=== PATIENT | male | born 1945 | race African-American/Black ===

== ENCOUNTER 2018-02-16 13:07 | Emergency (ER) | payer OTHER ==
[~2018-02-16] VITALS: Ht 188 cm; Wt 81.7 kg
[~2018-02-16 13:07] MED LIST: CLOPIDOGREL; LISINOPRIL PO; LOVASTATIN PO; ZOCOR40 MG PO
[2018-02-16] MEDS ORDERED: BLOOD PRESSURE (13:15)
[2018-02-16 14:17] LABS: URINE BILIRUBIN NEGATIVE (Negative); URINE BLOOD NEGATIVE (Negative); URINE CLARITY CLEAR; URINE COLOR YELLOW; URINE GLUCOSE-RANDOM NEGATIVE (Negative); URINE KETONES TRACE (Negative); URINE LEUKOCYTES-REFLEX TRACE (Negative); URINE NITRITE-REFLEX NEGATIVE (Negative); URINE PROTEIN 2+ (Negative); URINE SPECIFIC GRAVITY >= 1.030 (1.005-1.030)
[2018-02-16 14:23] LABS: HEMATOCRIT 44.6 % (42.0-52.0); HEMOGLOBIN 14.7 gm/dL (14.0-18.0); MCH 30.9 pg (26.0-34.0); MCHC 33.1 g/dL (28.0-37.0); MCV 93.5 fL (80.0-100.0); MPV 8.3 fl. (7.2-11.1); NUCLEATED RBCS 0 /100WBC; PLATELET COUNT* 256 thou/uL (150-400); RBC 4.77 mil/uL (4.50-6.00); RDW-CV 13.1 % (10.5-14.5); WBC 15.3 thou/uL (4.0-11.0)
[2018-02-16 14:25] LABS: BACTERIA-REFLEX None Seen /HPF (None Seen); CRYSTALS None Seen /LPF (None Seen); HYALINE CASTS 0-3 Few /LPF (None Seen); MUCUS 0-3 Light strn/LPF (None Seen); SQUAMOUS 0-3 Few /LPF (0-3); URINE RBC None Seen /HPF (0-2); URINE WBC-REFLEX 0-5 Rare /HPF (0-5)
[2018-02-16 14:40] LABS: ANION GAP 7 mmol/L (7-16); BUN 14 mg/dL (7-18); CALCIUM 9.5 mg/dL (8.5-10.1); CHLORIDE 104 mmol/L (98-107); CO2 26 mmol/L (21-32); CREATININE 1.1 mg/dL (0.6-1.3); GLUCOSE 112 mg/dL (70-99); POTASSIUM 4.1 mmol/L (3.5-5.1); SODIUM 137 mmol/L (136-145)
[2018-02-16 14:49] LABS: ABSOLUTE LYMPHOCYTES 1.2 thou/uL (0.8-5.3); ABSOLUTE MONOCYTES 0.2 thou/uL (0.0-1.2); ABSOLUTE NEUTROPHILS 13.9 thou/uL (1.6-8.1); PLATELET ESTIMATE ADEQUATE
[2018-02-16 14:50] LABS: ALKALINE PHOSPHATASE 87 U/L (46-116); SGOT 31 U/L (15-37); SGPT 35 U/L (30-65); TOTAL BILIRUBIN 0.5 mg/dL (<0.1-1.0); TOTAL PROTEIN 8.1 g/dL (6.4-8.2); TROPONIN-I LEVEL <0.06 ng/mL (<0.06)
[2018-02-16 15:42] VITALS: BP 149/77
--- NOTE | 2018-02-18 16:50 | EKG ---
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: : 1945 Requested By: Kaylene Hodges Order Number: [id number] MD: Ankit Dobbs Measurements Intervals [place] Rate: 61 P: 25 [place]: 176 QRS: 19 QRSD: 105 T: 10 QT: 427 QTc: 430 Interpretive Statements Sinus rhythm Probable left atrial enlargement Left ventricular hypertrophy Compared to ECG 10/21/2012 10:54:46 No significant changes Electronically Signed On 02-18-2018 16:49:45 CDT by Ankit Dobbs [email or web address] <ELECTRONICALLY SIGNED> By: Ankit Dobbs MD, [facility] 02/18/18 1649 1312 1312 Ankit Dobbs MD, FACC /EPI
== END 2018-02-16 15:43 | disposition home or self-care (01) ==
LOC: M.ERS 13:07
PROVIDERS: Personal Emergency Response Attendant
DX: R42 Dizziness and giddiness (principal); R55 Syncope and collapse; Z90.49 Acquired absence of other specified parts of digestive tract

== ENCOUNTER 2018-05-23 17:15 | Emergency (ER) | payer OTHER ==
[~2018-05-23] VITALS: Ht 185.4 cm; Wt 81.7 kg
[~2018-05-23 17:15] MED LIST changes: +BLOOD PRESSURE
[2018-05-23] MEDS ORDERED: NORVASC2.5 MG PO (17:31)
[2018-05-23] MEDS ORDERED: NORCO 5-325 TA1 EAC1 PO (19:30)
[2018-05-23 19:50] VITALS: BP 180/89
== END 2018-05-23 19:50 | disposition home or self-care (01) ==
LOC: M.ERS 17:15
DX: S30.0XXA Contusion of lower back and pelvis, initial encounter (principal); I10 Essential (primary) hypertension; Z98.890 Other specified postprocedural states; Z90.49 Acquired absence of other specified parts of digestive tract; W18.39XA Other fall on same level, initial encounter; Y93.89 Activity, other specified; Y92.89 Other specified places as the place of occurrence of the external cause; Y99.8 Other external cause status

== ENCOUNTER 2018-11-29 21:09 | Emergency (ER) | payer OTHER ==
[~2018-11-29] VITALS: Ht 185.4 cm; Wt 79.8 kg
[~2018-11-29 21:09] MED LIST changes: +NORCO 5-325 TA1 EAC1 PO; +NORVASC2.5 MG PO
[2018-11-30] MEDS ORDERED: NORCO 7.5-3251 EACH PO (00:08)
[2018-11-30 00:58] VITALS: BP 167/87
== END 2018-11-30 00:59 | disposition home or self-care (01) ==
LOC: M.ERS 21:09
DX: S80.02XA Contusion of left knee, initial encounter (principal); S79.911A Unspecified injury of right hip, initial encounter; S19.9XXA Unspecified injury of neck, initial encounter; I10 Essential (primary) hypertension; Z90.89 Acquired absence of other organs; Z90.49 Acquired absence of other specified parts of digestive tract; Z79.899 Other long term (current) drug therapy; W01.0XXA Fall on same level from slipping, tripping and stumbling without subsequent striking against object, initial encounter; Y93.89 Activity, other specified; Y92.89 Other specified places as the place of occurrence of the external cause; Y99.8 Other external cause status

== ENCOUNTER → 2019-08-18 | Outpatient (CLI) | payer OTHER ==
[~2019-08-18] MED LIST changes: +NORCO 7.5-3251 EACH PO
== END ==
LOC: M.LAB 14:51
DX: C61 Malignant neoplasm of prostate (principal)

== ENCOUNTER 2020-01-26 08:19 | Emergency (ER) | payer OTHER ==
[~2020-01-26] VITALS: Ht 185.4 cm; Wt 79.4 kg
[2020-01-26 09:25] VITALS: BP 178/88
== END 2020-01-26 09:27 | disposition home or self-care (01) ==
LOC: M.ERS 08:19
DX: Z71.1 Person with feared health complaint in whom no diagnosis is made (principal); Z20.828 Contact with and (suspected) exposure to other viral communicable diseases; I10 Essential (primary) hypertension; Z79.899 Other long term (current) drug therapy

== ENCOUNTER 2020-06-02 09:40 | Emergency (ER) | payer OTHER, BC ==
[~2020-06-02] VITALS: Ht 185.4 cm; Wt 79.4 kg
[2020-06-02] MEDS ORDERED: IBUPROFEN 800800 MG PO (10:47)
[2020-06-02 10:50] VITALS: BP 177/80
== END 2020-06-02 10:53 | disposition home or self-care (01) ==
LOC: M.ERS 09:40
DX: S40.012A Contusion of left shoulder, initial encounter (principal); S80.02XA Contusion of left knee, initial encounter; V89.2XXA Person injured in unspecified motor-vehicle accident, traffic, initial encounter; Y93.89 Activity, other specified; Y92.89 Other specified places as the place of occurrence of the external cause; Y99.8 Other external cause status

== ENCOUNTER → 2020-07-26 | Outpatient (CLI) | payer BC ==
[~2020-07-26] MED LIST changes: +COZAAR 25 MG TA25 M1 PO; +IBUPROFEN 800800 MG PO; +MOBIC15 MG PO; +NEURONTIN100 MG PO; +NORVASC 2.5 MG2.5 M1 PO; -NORVASC2.5 MG PO; +PROSCAR 5MG TABL5 M1 PO; +TRAMADOL 50 MG50 MG PO
== END ==
LOC: M.PC 11:46
PROVIDERS: ATTEND Anesthesiology Pain Medicine
DX: M54.2 Cervicalgia (principal); M25.512 Pain in left shoulder; M25.511 Pain in right shoulder; I12.9 Hypertensive chronic kidney disease with stage 1 through stage 4 chronic kidney disease, or unspecified chronic kidney disease; N18.30 Chronic kidney disease, stage 3 unspecified; E78.5 Hyperlipidemia, unspecified; R51.9 Headache, unspecified; M17.12 Unilateral primary osteoarthritis, left knee; Z79.899 Other long term (current) drug therapy

== ENCOUNTER → 2020-09-06 | Outpatient (CLI) | payer BC ==
[~2020-09-06] MED LIST changes: +.
== END | disposition home or self-care (01) ==
LOC: M.PC 08:41
PROVIDERS: ATTEND Anesthesiology Pain Medicine
DX: M54.12 Radiculopathy, cervical region (principal); I12.9 Hypertensive chronic kidney disease with stage 1 through stage 4 chronic kidney disease, or unspecified chronic kidney disease; N18.30 Chronic kidney disease, stage 3 unspecified; E78.5 Hyperlipidemia, unspecified; M17.12 Unilateral primary osteoarthritis, left knee; Z98.890 Other specified postprocedural states; Z79.899 Other long term (current) drug therapy; Z96.651 Presence of right artificial knee joint

== ENCOUNTER 2020-12-18 13:03 | Emergency (ER) | payer BC ==
[2020-12-18 14:24] VITALS: BP 00/00
== END 2020-12-18 14:25 | disposition left against medical advice (07) ==
LOC: M.ERS 13:03
DX: R55 Syncope and collapse (principal); Z53.21 Procedure and treatment not carried out due to patient leaving prior to being seen by health care provider

== ENCOUNTER 2021-02-19 13:42 | Observation (INO) | payer BC ==
[~2021-02-19] VITALS: Ht 182.9 cm; Wt 82.2 kg
--- NOTE | ~2021-02-19 | EMS ---
[place] [address] EMS Patient Care Report Name: STONEY TRAVIS Room: [facility].Clif#: [id number] Admission: 02/19/21 Attend Phys: Discharge: Date of : 41 Report #: [id number] THIS REPORT FOR: //name// Report Transmitted: 02/19/2021 13:31 EMS Care Summary [place] Incident [id number] @ 02/19/2021 12:42 Incident Location [address] [place] [id number] Patient Stoney Travis Male, 75 Years 1945 Patient Address [address] [place] [address] Patient History Hypertension (HTN),Hyperlipidemia, Patient Allergies No known allergies, Patient Medications Amlodipine, Simvastatin, Losartan, Chief Complaint Dizziness Disposition Transported No Lights/[place] Dispatch Reason Unconscious/Fainting Transported To [facility] Narrative Dispatched to address noted for a syncopal episode. [facility] en route and on scene after staging as noted. Arrived and found patient in a small adventist building. Patient was sitting in a chair, drinking Poweraid and was alert. Patient appeared clammy and had cold hands. 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 Patient had no fall or injuries noted. Bystanders on scene where very loud and interruptive to my assessment and questions so I moved the patient to the ambulance and he was buckled into the stretcher. Patient wanted to walk and I assisted him. Once in ambulance, patient stated that this same event happened 5 weeks ago and he was given fluid at the ER and releases. Patient stated he started to feel hot and dizzy before the event and denies any other complaint at this time other than dizziness. Vitals where taken at time noted with 12 lead ECG and blood glucose. Patient did not want to be transported initially, but after some conversations with his the patient agreed to go to [facility]. IV was attempted with no success and the patient stated he wanted to wait until he go the ED. While en route, vitals where taken again as noted and no major changes occurred. Patient stated no current complaint. Radio report was given at time noted. Arrived and took patient to room. Patient was moved to bed and RN was given verbal report. RN signed for patient and patient signed for self. END REPORT EMT-P Omer Cartagena Initial Vitals @12:57SpO2: 94, @12:58SpO2: 94, @12:58SpO2: 99, @13:01SpO2: 99, @13:02SpO2: 98, @13:06SpO2: 99, @13:11SpO2: 99, @13:00 @12:58P: 81,R: 16,BP: 127/71, @13:02P: 74,R: 16,BP: 119/73, @13:33P: 64,R: 16,BP: 116/73, @12:58GCS: 15, @13:02GCS: 15, @13:33GCS: 15, @12:48 @12:54Glucose: 259, Assessments @12:48MENTAL:SKIN:HEENT:LUNG SOUNDS:ABDOMEN:PELVIS//GI:EXTREMITIES:PULSE:NEURO: Impression Syncope / Fainting Procedures @13:16 cc () Site: Forearm-LeftResponse: UnchangedFailed@13:0012-Lead ECGResponse: [place] [address] EMS Patient Care Report Name: STONEY TRAVIS [facility] [id number] Admission: 02/19/21 Attend Phys: Discharge: Date of : 41 Report #: [id number] Timeline 12:42,Dispatch Notified 12:42,Psap Call 12:42,Dispatched 12:42,En Route 12:46,On Scene 12:48,At Patient 12:48,BP: / M,PULSE: ,RR: R,SPO2: Ox,ETCO2: ,BG: ,PAIN: ,GCS: , 12:54,BP: / M,PULSE: ,RR: R,SPO2: Ox,ETCO2: ,B,PAIN: ,GCS: , 12:57,BP: / M,PULSE: ,RR: R,SPO2: 94 Ox,ETCO2: ,BG: ,PAIN: ,GCS: , 12:58,BP: / M,PULSE: ,RR: R,SPO2: 94 Ox,ETCO2: ,BG: ,PAIN: ,GCS: , 12:58,BP: / M,PULSE: ,RR: R,SPO2: 99 Ox,ETCO2: ,BG: ,PAIN: ,GCS: , 12:58,BP: 127/71 M,PULSE: 81,RR: 16 R,SPO2: Ox,ETCO2: ,BG: ,PAIN: ,GCS: , 12:58,BP: / M,PULSE: ,RR: R,SPO2: Ox,ETCO2: ,BG: ,PAIN: ,GCS: 15, 13:00,Call Received 13:00,12-Lead ECG,Response: UnchangedSucceeded, 13:00,BP: / M,PULSE: ,RR: R,SPO2: Ox,ETCO2: ,BG: ,PAIN: ,GCS: , 13:01,BP: / M,PULSE: ,RR: R,SPO2: 99 Ox,ETCO2: ,BG: ,PAIN: ,GCS: , 13:02,BP: / M,PULSE: ,RR: R,SPO2: 98 Ox,ETCO2: ,BG: ,PAIN: ,GCS: , 13:02,BP: 119/73 M,PULSE: 74,RR: 16 R,SPO2: Ox,ETCO2: ,BG: ,PAIN: ,GCS: , 13:02,BP: / M,PULSE: ,RR: R,SPO2: Ox,ETCO2: ,BG: ,PAIN: ,GCS: 15, 13:06,BP: / M,PULSE: ,RR: R,SPO2: 99 Ox,ETCO2: ,BG: ,PAIN: ,GCS: , 13:11,BP: / M,PULSE: ,RR: R,SPO2: 99 Ox,ETCO2: ,BG: ,PAIN: ,GCS: , 13:16, cc Site: Forearm-Left,Response: UnchangedFailed, 13:17,Depart Scene 13:33,BP: 116/73 M,PULSE: 64,RR: 16 R,SPO2: Ox,ETCO2: ,BG: ,PAIN: ,GCS: , 13:33,BP: / M,PULSE: ,RR: R,SPO2: Ox,ETCO2: ,BG: ,PAIN: ,GCS: 15, 13:40,At Destination 13:50,Call Closed Disclaimer v1.1 Copyright 2020 [employer] This EMS Care Summary contains data elements from the applicable legal record (which may be displayed differently). It is designed to provide pertinent information for the following purposes: continuity of care, clinical quality, and state data reporting. The complete legal record is available to ED staff and administrators of the receiving hospital in [employer] Patient Tracker. All data is provided "as is."
[2021-02-19 13:50] VITALS: BP 116/90
[2021-02-19 14:09] LABS: ABSOLUTE MONOCYTES 0.4 thou/uL (0.0-1.2); ABSOLUTE NEUTROPHILS 7.6 thou/uL (1.6-8.1); BASOPHILS 0.4 %; EOSINOPHILS 0.3 %; HEMATOCRIT 39.1 % (42.0-52.0); HEMOGLOBIN 12.8 gm/dL (14.0-18.0); LYMPHOCYTES 11.4 %; MCH 30.9 pg (26.0-34.0); MCHC 32.8 g/dL (28.0-37.0); MCV 94.1 fL (80.0-100.0); MONOCYTES 4.1 %; MPV 7.8 fl. (7.2-11.1); NUCLEATED RBCS 0 /100WBC; PLATELET COUNT* 257 thou/uL (150-400); POLYS 83.8 %; RBC 4.15 mil/uL (4.50-6.00); RDW-CV 13.5 % (10.5-14.5); WBC 9.1 thou/uL (4.0-11.0)
[2021-02-19 14:19] LABS: CALCIUM 9.2 mg/dL (8.5-10.1); CREATININE 1.3 mg/dL (0.6-1.3); POTASSIUM 3.9 mmol/L (3.5-5.1)
[2021-02-19 14:23] LABS: ALBUMIN 3.8 g/dL (3.4-5.0); TOTAL BILIRUBIN 0.5 mg/dL (<0.1-1.0); TOTAL PROTEIN 7.8 g/dL (6.4-8.2)
[2021-02-19 23:40] VITALS: BP 153/76; BP 160/79
[2021-02-20] MEDS ORDERED: TAMSULOSIN HCL0.4 MG PO (00:02)
--- NOTE | 2021-02-20 01:47 | NUR ---
PT ALERT ORIENTED. PT ORIENTED TO CALL LIGHT, TV CONTROLLER AND ROOM. PT PLACED ON FALL PRECAUTIONS. 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 EYE GLASSES WITH PT. UPPER DENTURE WITH PT. CELL PHONE WITHOUT SPECIAL TRACKWORK BLACKSMITH IN ROOM MARBLEIZING MACHINE TENDER TRACING SB. PT MADE NPO FOR CARDIAC CONSULT.
[2021-02-20 04:00] VITALS: BP 155/67
[2021-02-20 08:15] VITALS: BP 154/75
--- NOTE | 2021-02-20 09:51 | NUR ---
cm completed assessment with pt. pt indicated he lives at home with . pt is active and independent with adls. pt uses no dmes. pt drives a vehicle. pt denies hx with snf or hh.
[2021-02-20 13:26] VITALS: BP 154/75
--- NOTE | 2021-02-20 16:04 | EKG ---
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
--- NOTE | 2021-02-20 16:06 | EKG ---
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
--- NOTE | 2021-02-20 17:12 | 2DMMODE ---
[place] [address] 2 D/M-MODE ECHOCARDIOGRAM Name: STONEY TRAVIS Room: [address] M.R.#: [id number] Admission: 02/19/21 Attend Phys: Silva Nieto, Discharge: Date of : 41 Date of Service: 02/20/21 1711 Report #: [id number] THIS REPORT FOR: cc: Jack Ellis MD, Anthony MD Liston, Michael J. MD [facility] ~ APPROVED REPORT Study performed: 02/20/2021 14:42:05 EXAM: Comprehensive 2D, Doppler, and color-flow Echocardiogram Patient Location: In-Patient Room #: [facility] Status: routine BSA: 2.04 HR: 57 bpm BP: 154/75 mmHg Rhythm: NSR Other Information Study Quality: Good Indications Syncope 2D Dimensions IVSd: 11.51 (7-11mm) LVOT Diam: 24.43 (18-24mm) LVDd: 51.02 mm PWd: 10.45 (7-11mm) Ascending Ao: 37.01 (22-36mm) LVDs: 31.93 (25-40mm) Aortic Root: 38.02 mm Volumes Left Atrial Volume (Systole) LA ESV Index: 33.40 mL/m2 Aortic Valve AoV Peak Agustin.: 1.79 m/s AO Peak Gr.: 12.82 mmHg LVOT Max P.65 mmHg AO Mean Gr.: 6.70 mmHg LVOT Mean P.56 mmHg LVOT Max V: 1.29 m/s AO V2 VTI: 34.64 cm LVOT Mean V: 0.71 m/s NILS (VTI): 4.05 cm2 LVOT V1 VTI: 29.95 cm AI [place]: 2.06 m/s2 [place] [address] 2 D/M-MODE ECHOCARDIOGRAM Name: STONEY TRAVIS Room: [address] M.R.#: [id number] Admission: 02/19/21 Attend Phys: Silva Nieto, Discharge: Date of : 41 Date of Service: 02/20/21 1711 Report #: [id number] AI PHT: 670.48 ms Mitral Valve E/A Ratio: 0.66 MV Decel. Time: 253.66 ms MV E Max Agustin.: 0.69 m/s MV PHT: 73.56 ms MVA (PHT): 2.99 cm2 TDI E/Lateral E': 8.63 E/Medial E': 9.86 Medial E' Agustin.: 0.07 m/s Lateral E' Agustin.: 0.08 m/s Pulmonary Valve PV Peak Agustin.: 0.91 m/s PV Peak Gr.: 3.29 mmHg Left Ventricle The left ventricle is normal size. There is normal LV segmental wall motion. Mild concentric left ventricular hypertrophy. Left ventricular systolic function is normal. LVEF is 55-60%. Grade I - abnormal relaxation pattern. Right Ventricle The right ventricle is normal size. The right ventricular systolic function is normal. Atria The left atrium size is normal. The right atrium size is normal. Aortic Valve Mild aortic valve sclerosis. Mild aortic regurgitation. There is no aortic valvular stenosis. Mitral Valve The mitral valve is normal in structure. Trace mitral regurgitation. No evidence of mitral valve stenosis. Tricuspid Valve The tricuspid valve is normal in structure. Trace tricuspid regurgitation. Unable to assess PA pressure. Pulmonic Valve The pulmonary valve is normal in structure. There is no pulmonic [place] [address] 2 D/M-MODE ECHOCARDIOGRAM Name: STONEY TRAVIS Room: [address]#: [id number] Admission: 02/19/21 Attend Phys: Silva Nieto, Discharge: Date of : 41 Date of Service: 02/20/21 1711 Report #: [id number] Great Vessels The aortic root is normal in size. IVC is normal in size and collapses >50% with inspiration. Pericardium There is a small to moderate-sized circumferential pericardial effusion noted. There were no signs of hemodynamic compromise. <Conclusion> The left ventricle is normal size. Mild concentric left ventricular hypertrophy. Left ventricular systolic function is normal. LVEF is 55-60%. Grade I - abnormal relaxation pattern. Mild aortic valve sclerosis. Mild aortic regurgitation. Trace mitral regurgitation. Trace tricuspid regurgitation. IVC is normal in size and collapses >50% with inspiration. There is a small to moderate-sized circumferential pericardial effusion noted. There were no signs of hemodynamic compromise. <ELECTRONICALLY SIGNED> By: Félix Ramirez MD, FACC 02/20/211710 10 10 Félix Ramirez MD, FACC /INF
[2021-02-20 19:04] VITALS: BP 162/80
== END 2021-02-20 18:50 | disposition home or self-care (01) ==
LOC: M.ERS 13:42 → M.ORTHSURG 16:50 → M.TBA-ER 16:50 → M.ORTHSURG 16:50
PROVIDERS: Emergency Medicine Emergency Medical Services; ADMIT Internal Medicine; ATTEND Internal Medicine
DX: R55 Syncope and collapse (principal); Z20.822 Contact with and (suspected) exposure to COVID-19; I10 Essential (primary) hypertension; E78.5 Hyperlipidemia, unspecified; E86.0 Dehydration; Z85.46 Personal history of malignant neoplasm of prostate; Z79.899 Other long term (current) drug therapy

== ENCOUNTER 2021-04-29 09:28 | Emergency (ER) | payer BC ==
[~2021-04-29] VITALS: Ht 185.4 cm; Wt 82.6 kg
[~2021-04-29 09:28] MED LIST changes: +TAMSULOSIN HCL0.4 MG PO
[2021-04-29 10:35] VITALS: BP 150/63
== END 2021-04-29 11:39 | disposition home or self-care (01) ==
LOC: M.ERS 09:28
DX: Z20.822 Contact with and (suspected) exposure to COVID-19 (principal); I10 Essential (primary) hypertension; Z90.89 Acquired absence of other organs; Z79.899 Other long term (current) drug therapy

== ENCOUNTER 2021-05-23 10:55 | Emergency (ER) | payer BC ==
[~2021-05-23] VITALS: Ht 185.4 cm; Wt 82.6 kg
[2021-05-23 11:04] VITALS: BP 115/58
== END 2021-05-23 11:21 | disposition home or self-care (01) ==
LOC: M.ERS 10:55
DX: R53.1 Weakness (principal); R09.89 Other specified symptoms and signs involving the circulatory and respiratory systems; I10 Essential (primary) hypertension; Z90.89 Acquired absence of other organs; Z98.890 Other specified postprocedural states; Z79.899 Other long term (current) drug therapy; Z96.651 Presence of right artificial knee joint